=== PATIENT | male | born 1960 | race Caucasian/White ===

== ENCOUNTER 2021-11-19 22:09 | Emergency (ER) | payer OTHER ==
[~2021-11-19] VITALS: Ht 175.3 cm; Wt 108.9 kg
[2021-11-19] MEDS ORDERED: TOPROL XL50 MG (22:18)
[2021-11-19] MEDS ORDERED: BENICAR20 MG (22:18)
[2021-11-19 23:35] VITALS: BP 170/95
== END 2021-11-19 23:39 | disposition home or self-care (01) ==
LOC: M.ERS 22:09
DX: R04.0 Epistaxis (principal); I10 Essential (primary) hypertension; Z79.899 Other long term (current) drug therapy; Z88.8 Allergy status to other drugs, medicaments and biological substances